=== PATIENT | male | born 1975 | race African-American/Black ===

== ENCOUNTER 2017-07-30 23:03 | Emergency (ER) | payer SELFPAY ==
[~2017-07-30] VITALS: Ht 172.7 cm; Wt 80.4 kg
[~2017-07-30 23:03] MED LIST: AMOXICILLIN500 MG PO; CEPHALEXIN500 M1 PO; DENIES CURRENT MEDS; FLEXERIL PO; NAPROSYN500 MG PO; NAPROXEN375 MG OR; NO MEDICATIONS; PENICILLN VK500 MG OR; PENICILLN VK500 MG PO; PERCOCET 5/325M1 TAB OR; ROBITUSSIN AC10 ML OR; TORADOL PO; ZOFRAN ODT8 MG SL
[2017-07-31] MEDS ORDERED: AMOXICILLIN500 MG PO (00:31)
[2017-07-31] MEDS ORDERED: PERCOCET 5/325M1 TAB PO (00:31)
[2017-07-31 01:18] VITALS: BP 123/79
== END 2017-07-31 01:27 | disposition home or self-care (01) | DRG 159 ==
LOC: ED 23:03
DX: K02.9 Dental caries, unspecified (principal); F17.200 Nicotine dependence, unspecified, uncomplicated

== ENCOUNTER 2018-03-30 01:54 | Emergency (ER) | payer SELFPAY ==
[~2018-03-30] VITALS: Ht 172.7 cm; Wt 83.6 kg
[~2018-03-30 01:54] MED LIST changes: +PERCOCET 5/325M1 TAB PO
[2018-03-30] MEDS ORDERED: BACTRIM DS1 TAB PO (02:38)
[2018-03-30 03:00] VITALS: BP 140/80
== END 2018-03-30 03:00 | disposition home or self-care (01) | DRG 603 ==
LOC: ED 01:54
DX: L03.213 Periorbital cellulitis (principal); F17.200 Nicotine dependence, unspecified, uncomplicated

== ENCOUNTER 2022-07-07 19:54 | Emergency (ER) | payer SELFPAY ==
[2022-07-07] VITALS (9 sets, daily range): BP systolic 113–127; BP diastolic 61–88
[~2022-07-07] VITALS: Ht 172.7 cm; Wt 81.8 kg
[~2022-07-07 19:54] MED LIST changes: +BACTRIM DS1 TAB PO
[2022-07-07 22:21] LABS: BASO% 0.3 % (0-3); EOS% 1.3 % (0-8); HEMATOCRIT 43.6 % (39.0-50.0); IMMATURE GRANULOCYTES 0.1 % (0.0-5.0); LYMPH% 18.8 % (15-41); MEAN CELL VOLUME 95.2 fL CALC (80.0-100.0); MEAN CORPUSCULAR HGB 30.6 pG CALC (26.0-32.0); MEAN CORPUSCULAR HGB CONC 32.1 g/dL CAL (32.0-36.0); MONO% 9.2 % (2-13); NEUT# 9.43 thou/uL (1.82-7.42); NEUT% 70.3 % (42-76); RED BLOOD COUNT 4.58 mill/uL (4.70-6.10); RED CELL DISTRI WIDTH 13.8 % (11.5-15.5)
[2022-07-07 22:34] LABS: ALBUMIN 4.4 g/dL (3.2-5.0); ALKALINE PHOSPHATASE 97 u/l (38-126); ANION GAP 8 (6-22 (CALC)); BUN 8 mg/dL (9-20); BUN/CREATININE RATIO 8 (12-20 (CALC)); CARBON DIOXIDE 31 mmol/l (22-30); CHLORIDE 102 mmol/l (95-108); GFR FOR AFR.AMER. > 60 ML/MIN (>=60 (CALC)); GFR OTHER RACES > 60 ML/MIN (>=60 (CALC)); POTASSIUM 4.2 mmol/l (3.5-5.1); SGOT/AST 26 u/l (17-59); SODIUM 137 mmol/l (137-146); TOTAL PROTEIN 7.9 g/dL (6.3-8.2)
[2022-07-07 22:38] LABS: BILIRUBIN, TOTAL 0.6 mg/dL (0.2-1.3)
[2022-07-07] MEDS ORDERED: ULTRAM50 MG PO (23:56)
[2022-07-07] MEDS ORDERED: KEFLEX500 MG PO (23:56)
[2022-07-08] VITALS: BP 111/61
[2022-07-08 00:15] VITALS: BP 116/73
[2022-07-08 00:22] VITALS: BP 116/73
== END 2022-07-08 00:55 | disposition home or self-care (01) | DRG 603 ==
LOC: ED 19:54
PROVIDERS: Emergency Medicine
DX: L03.115 Cellulitis of right lower limb (principal); L03.116 Cellulitis of left lower limb; F17.200 Nicotine dependence, unspecified, uncomplicated

== ENCOUNTER 2024-06-20 00:38 | Emergency (ER) | payer OTHER ==
[2024-06-20] VITALS (16 sets, daily range): BP systolic 99–129; BP diastolic 58–84
[~2024-06-20] VITALS: Ht 172.7 cm; Wt 81.6 kg
[~2024-06-20 00:38] MED LIST changes: +KEFLEX500 MG PO; +ULTRAM50 MG PO
[2024-06-20] MEDS ORDERED: ACETAMINOPHEN 500 MG TAB PO ONE (02:45)
[2024-06-20] MEDS ORDERED: KETOROLAC TROMETHAMINE 30 MG/ML SDV IM ONE (02:50)
[2024-06-20] MEDS ORDERED: MOTRIN800 MG PO (04:04)
== END 2024-06-20 06:21 | disposition home or self-care (01) | DRG 313 ==
LOC: ED 00:38
DX: R07.89 Other chest pain (principal); M54.2 Cervicalgia; M54.9 Dorsalgia, unspecified; F17.290 Nicotine dependence, other tobacco product, uncomplicated; V43.52XA Car driver injured in collision with other type car in traffic accident, initial encounter